=== PATIENT | female | born 1965 | race African-American/Black ===

== ENCOUNTER 2019-03-01 08:27 | Emergency (ER) | payer OTHER, MEDICAID ==
[~2019-03-01] VITALS: Ht 160 cm; Wt 81.6 kg
[~2019-03-01 08:27] MED LIST: ACET-1304; CITA10TA59; HYDR5CAP; NOR10T
[2019-03-01] MEDS ORDERED: SODIUM CHLORIDE 0.9% 1,000 ML IVB ONE (10:09)
[2019-03-01] MEDS ORDERED: ONDANSETRON HCL 4 MG/2 ML VIAL IV ONE ×2 (10:30→12:15)
[2019-03-01] MEDS ORDERED: MORPHINE SULF INJ 2 MG/ML SYRINGE 1ML IV ONE ×2 (10:30→12:15)
[2019-03-01 10:31] LABS: Basophils # (auto) 0 uL; Basophils % (auto) 0.2 % (0.0-2.0); Eosinophils # (auto) 0 uL; Eosinophils % (auto) 0.4 % (0.0-7.0); Hemoglobin 13.1 g/dL (12.2-16.2); Lymphocytes # (auto) 0.6 uL; Mean Corpuscular Hemoglobin 31.5 pg (28.0-32.0); Mean Corpuscular Hgb Conc. 32.8 g/dL (32.0-36.0); Mean Corpuscular Volume 96.2 fL (80.0-100.0); Monocytes # (auto) 0.6 uL; Monocytes % (auto) 4.4 % (0.0-12.0); Neutrophils # (auto) 11.6 uL; Platelet Count (auto) 340 10^3/uL (140-450); Red Blood Cells 4.16 10^6/uL (4.0-5.20); Red Cell Distribution Width 15.9 % (11.8-14.3); White Blood Cell 12.9 10^3/uL (4.4-10.8)
[2019-03-01 10:51] LABS: INR 1.95 (0.9-1.15); Partial Thromboplastin Time 33.3 sec (23.64-32.05)
[2019-03-01 10:59] LABS: Albumin 3.8 g/dL (3.4-5.0); Magnesium 2.3 mg/dL (1.6-2.6); Potassium 3.9 mmol/L (3.5-5.1)
[2019-03-01 11:03] LABS: Bilirubin, Total 0.4 mg/dL (0.2-1.0); Total Protein 8.3 g/dL (6.4-8.2)
[2019-03-01] MEDS ORDERED: CYCLOBENZAPRINE HCL 10 MG TAB PO ONE (12:30)
[2019-03-01 14:29] LABS: Urine Bacteria NONE SEEN /hpf (None Seen); Urine Blood 2+ /uL (Negative); Urine Mucus FEW (None Seen); Urine Specific Gravity 1.025 (1.001-1.035); Urine WBC 4 /hpf (0 - 5)
[2019-03-01] MEDS ORDERED: PROMETHAZINE HCL 25 MG/ML 1ML IV ONE ×2 (15:30→17:30)
[2019-03-01] MEDS ORDERED: HYDROmorphone HCL 2 MG/ML VL IV ONE ×2 (15:30→17:30)
[2019-03-01 17:03] VITALS: BP 151/78
== END 2019-03-01 17:43 | disposition short-term general hospital (02) ==
LOC: EDBD 08:27 → ER 08:27
DX: S32.009A Unspecified fracture of unspecified lumbar vertebra, initial encounter for closed fracture (principal); S22.31XA Fracture of one rib, right side, initial encounter for closed fracture; S13.9XXA Sprain of joints and ligaments of unspecified parts of neck, initial encounter; S27.329A Contusion of lung, unspecified, initial encounter; S80.212A Abrasion, left knee, initial encounter; V43.52XA Car driver injured in collision with other type car in traffic accident, initial encounter; Y93.89 Activity, other specified; Y92.488 Other paved roadways as the place of occurrence of the external cause; Y99.8 Other external cause status
CPT/HCPCS: 36415; 70450; 71250; 72125; 72131; 74176; 80053; 81001; 83735; 85025; 85610; 85730; 93005; 96374; 96375; 96376; 99291; J1170; J2270; J2405; J2550; J7030